=== PATIENT | male | born 1980 | race Caucasian/White ===

== ENCOUNTER → 2021-09-02 08:26 | Outpatient (CLI) | payer OTHER, BC, SELFPAY ==
--- NOTE | ~2021-09-02 | CT_ITS ---
EXAMINATION: CT sinus wo con DATE: 09/02/2021 08:41 INDICATION: Chronic sinusitis. History of rhinoplasty and sinus surgery TECHNIQUE: Computed tomography (CT) of the paranasal sinuses was performed without contrast. Iterativ e reconstruction technique was employed. Exam dose: 281.78 mGy-cm total exam DLP. COMPARISON: None FINDINGS: There is leftward bowing of the nasal septum. There is asymmetric soft tissue prominence of the right middle and inferior nasal turbinates. Status post bilateral nasal antral windows. There is resection of the uncinate processes. There is minimal right and mild left mucoperiosteal thickening of the frontal sinuses. There is promi nent patchy opacification of ethmoid air cells bilaterally. There is moderately prominent mucoperiosteal thickening of both maxillary sinuses. The sphenoid sinus es are clear. The mastoid air cells are normally developed and aerated. IMPRESSION: Status post bilateral nasal antral windows Leftward bowing of nasal septum Minimal right and mild left frontal sinus mucoperiosteal thickening and patchy opacification of ethmo id air cells bilaterally Moderate opacification of both maxillary sinuses Reviewed, dictated and finalized at [facility]. Reviewed, dictated and finalized at [facility]. IMPRESSION: Status post bilateral nasal antral windows Leftward bowing of nasal septum Minimal right and mild left frontal sinus mucoperiosteal thickening and patchy opacification of ethmoid air cells bilaterally Moderate opacification of both maxillary sinuses
== END ==
PROVIDERS: PCP Family Medicine; Visit Provider Otolaryngology
DX: J32.9 Chronic sinusitis, unspecified (principal); J34.2 Deviated nasal septum
CPT/HCPCS: 70486

== ENCOUNTER 2021-10-24 02:11 | Day surgery (SDC) | payer OTHER, BC, SELFPAY ==
[2021-10-14 10:03] VITALS: BMI 27.5
--- NOTE | 2021-10-14 10:15 | PC.NURSE ---
Report to the Outpatient Waiting Room, entrance under the green pavilion located off [facility], at time 0700 on date 10/24/21. OR Time: 0900. - You and your visitor will be asked a series of questions to screen for COVID 19 for your protection. - Only one visitor is allowed at this time. - The patient visitor is requested to leave or wait in car when not with patient. - A mask is required within the hospital. Patients may have clear liquids (water, carbonated beverages, clear teas, apple juice) until 3 hours prior to surgery with a maximum of 20 ounces. - No food from midnight until time of surgery Take the following medications with a SIP of water the morning of surgery: THYROID Medications to discontinue per physician: N/A (TAKES VITAMIN ON SUNDAY) Date to take last dose: N/A Please no make-up, nail frisian, hairspray, perfume, deodorant, or body powder the day of surgery. No jewelry (including any body piercings) or valuables the day of surgery, leave them at home. Please take a shower or bath the night before, or the morning of, surgery with an antibacterial soap. Wear comfortable, loose fitting clothing. Children are encouraged to wear pajamas. - Jewelry must be removed prior to entering the operating room. Rings and piercings that are not removed may be cut off. - The hospital will not accept responsibility for valuables. - Please leave all valuables, including medications, at home the day of surgery. If you are going home after surgery, a licensed driver guard must drive you home. - NO public transportation without another adult. - We recommend that an adult stay with you for 24 hours following discharge. - We also recommend that you do not drive, make important decision, drink alcoholic beverages, or take any drugs that were not prescribed by your health care provider for at least 24 hours after your discharge time. Follow any additional instructions given to you from your surgeon. If you or anyone in your household have experienced Covid symptoms in the past week, please notify your surgeon or the nurse liaison at the phone number below for possible testing. Telephone instructions given to PT - MEGHNA ROGERS and asked if any additional questions and then verbalized understanding. Patient advised to call surgeon office or pre surgery nurse liaison [phone] if any additional questions.
[2021-10-24] VITALS (9 sets, daily range): BP systolic 138–162; BP diastolic 84–102; PULSE 68–83; RESP 14–18; TEMP 36.4–36.9; O2SAT 96–100
--- NOTE | 2021-10-24 07:24 | PM.IMHP ---
H&P: HPI History of Present Illness Date/Time: 10/24/21 07:24 Chief Complaint: Chronic sinusitis Narrative: hx of FESS, recurrent polyposis Review of Systems Review of Systems: All systems reviewed & are unremarkable except as noted in HPI and below [facility] Social History Social History Smoking packs per day: 1 Smoking cigarettes per day: 20.0 Years smoked: 5 Smoking pack-years: 5.00 Smoking status: Former smoker Tobacco type: cigarettes Smoking end date: 05/07/02 Alcohol intake: current Drinks per week: 2 Substance use: never Substance use type: does not use Living arrangements: with family Spiritual care concerns: No Meds Home Medications and Allergies Home Medications Medication Instructions Recorded Confirmed Type clomiphene citrate 50 mg tablet 1 tablet PO DAILY 10/14/21 10/24/21 History ergocalciferol (vitamin D2) 1,250 1 cap PO WEEKLY 10/14/21 10/24/21 History mcg (50,000 unit) capsule fexofenadine 180 mg tablet 180 mg PO DAILY 10/14/21 10/24/21 History thyroid (pork) 90 mg tablet 1 tablet PO DAILY 10/14/21 10/24/21 History ([place] Thyroid) Allergies Allergy/AdvReac Type Severity Reaction Status Date / Time No Known Drug Allergies Allergy Unknown none Verified 10/24/21 07:03 Exam Narrative: Bilateral nasal polyposis and chronic sinusitis, rest of exam wnl Assessment and Plan Assessment and plan (1) Nasal polyposis: Code(s): J33.9 - Nasal polyp, unspecified Status: Acute Assessment and Plan: Chronic pansinusitis with nasal polyposis, here for revision FESS, possible septoplasty, turbinoplasty under image guidance. r/b/a reviewed, refer to outpt H&P for full details.
--- NOTE | 2021-10-24 07:26 | WPDHPUPDATE1 ---
History and Physical Update Update Date/Time: 10/24/21 07:26 History and Physical has been reviewed, including an updated exam of the patient. There are NO changes in the patient's condition. Risks, benefits, and alternatives have been discussed and questions answered. Patient agrees to proceed with procedure.
[2021-10-24] MEDS: LACTATED RINGERS 1,000 ML 30 ML IV CONT (07:44)
[2021-10-24] MEDS: ACETAMINOPHEN 500 MG TABLET 1000 MG PO (07:45)
--- NOTE | 2021-10-24 07:53 | P.PNAN_ITS ---
Anes - Initial Pre Proc Eval Procedure: Operation Date: 10/24/21 09:[address] Guided, Bilateral Frontal Sinusotomy, Bilateral Ethmoidectomy, Bilateral Sphenoidotomy, Bilateral Maxillary Antrostomy, Bilateral Turbinate Reduction, - Sahil Uribe MD s Septoplasty - Sahil Uribe MD Date/Time: 10/24/21 07:53 Surgeon: Sahil Uribe MD Pre Op Diagnosis: nasal polyps, chronic sinusitis,deviated septum, Patient Data Age: 41 Gender: M Height: 1.91 m Weight: 102 kg Last Vital Signs Temp 36.9 C 10/24/21 07:47 Pulse 81 10/24/21 07:47 Resp 16 10/24/21 07:47 BP 138/84 10/24/21 07:47 Pulse Ox 98 10/24/21 07:47 O2 Del Method Room Air 10/24/21 07:47 Allergies Allergy/AdvReac Type Severity Reaction Status Date / Time No Known Drug Allergies Allergy Unknown none Verified 10/24/21 07:03 Home Medications Medication Instructions Recorded Confirmed Type clomiphene citrate 50 mg tablet 1 tablet PO DAILY 10/14/21 10/24/21 History ergocalciferol (vitamin D2) 1,250 1 cap PO WEEKLY 10/14/21 10/24/21 History mcg (50,000 unit) capsule fexofenadine 180 mg tablet 180 mg PO DAILY 10/14/21 10/24/21 History thyroid (pork) 90 mg tablet 1 tablet PO DAILY 10/14/21 10/24/21 History ([place] Thyroid) Patient hx anesthesia problems: none Family hx anesthesia problems: none Results Review: All pre-operative results and documents have been reviewed as part of the pre- operative evaluation. [facility] Surgical History Surgical History (Updated 10/24/21 @ 07:53 by Wong Domingo MD) H/O arthroscopic knee surgery H/O sinus surgery Social History Social History Smoking packs per day: 1 Smoking cigarettes per day: 20.0 Years smoked: 5 Smoking pack-years: 5.00 Smoking status: Former smoker Tobacco type: cigarettes Smoking end date: 05/07/02 Alcohol intake: current Drinks per week: 2 Substance use: never Substance use type: does not use Living arrangements: with family Spiritual care concerns: No Anes - Eval Final PreProcedure Day of Procedure 10/24/21 07:53 Patient weight: overweight Heart: regular rate and rhythm Lungs: clear to auscultation Airway: Mallampati scale class II Neurological: alert and oriented Last oral intake: >/= 8 hours ASA classification: II Emergent: no Anesthetic plan: proceed Anesthesia type and monitoring: general ETT and standard monitoring Results Review: All pre-operative results and documents have been reviewed as part of the pre- operative evaluation. Informed Consent: The patient's anesthetic plan and its attendant risks and benefits were discussed with the patient/family/POA. Questions were solicited and answers provided to the satisfaction of the patient/family/POA.
[2021-10-24] MEDS: ceFAZolin 2 GM/D5W 50 ML 2 GM/50 ML BAG IVPB (08:23)
[2021-10-24] MEDS: OXYMETAZOLINE HCL 0.05% NAS 15 ML BTL (*BKC) 1 SPRAY NASAL (08:43)
[2021-10-24] MEDS: MUPIROCIN 2% OINT 22 GM TUBE 1 APPLIC EACH NARE (09:30)
[2021-10-24] MEDS: LIDO 1%/EPINEPHRINE/PF 1:200,000 30 ML VIAL XX (09:34)
--- NOTE | 2021-10-24 09:34 | W.PM.PROC2 ---
Procedure Note - Detailed Date of Procedure 10/24/21 Pre-op Diagnosis nasal polyps, chronic sinusitis,deviated septum, Post-op Diagnosis Same Procedure Performed Bilateral frontal sinusotomy, total ethmoidectomy, sphenoidotomy, maxillary antrostomy, turbinoplasty. Image guided surgery. Surgeon Sahil Uribe MD Anesthesia General Indications Nasal polyposis, chronic pansinusitis Findings Bilateral nasal polyposis, stenotic sphenoid and frontal sinuses. Septoplasty not required. Description of Procedure On the date of procedure the patient was met in the preoperative area and risk and benefits of the procedure reviewed with the patient as documented in the H&P and they elected to proceed with surgery. Patient was brought back to the operating room by the anesthesia team and underwent general endotracheal anesthesia. Once an adequate plane of anesthesia was obtained a timeout was performed to assure the patient identification the patient here to be performed were correct. They were.The patient was then prepped and draped in the normal fashion for endoscopic sinus surgery. The diffusion image guidance system was calibrated and used for the entire case. Afrin-soaked pledgets were placed in the nasal cavities bilaterally. The entire case was performed under endoscopic visualization. Nasal endoscopy was performed at the beginning of the case. 1% lidocaine with 1:100,000 epinephrine was then injected into the root of the middle turbinate and lateral nasal wall. Attention was first directed towards the right side. The middle turbinate was medialized and the osteomeatal complex was identified with a kaitlin probe. Using a 90 degree backbiter, the uncinate process was reflected anteriorly and removed using a combination of sharp and powered dissection. The maxillary antrostomy was then created and widened by identifying the natural ostia and opening the sinus with straight lis-cut forceps, backbiter, and microdebrider. Polyp tissue encountered was removed with microdebrider. Continuing with the microdebrider, the anterior ethmoid bulla was opened. Careful dissection was carried out posteriorly, through the basal lamella and posterior ethmoid cells until the sphenoid rostrum was identified. A Dulce suction bluntly identified the sphenoid os and the opening was widened with microdebrider and mushroom punch to 5mm. Polyp disease was removed from the sphenoid. Using an image guided curved suction as well as J-curette, the posterior most ethmoid cell was identified and the ethmoids were bluntly fractured and dissected from posterior to anterior along the base of the skull. The remaining bone fragments were removed with appropriate curved instruments and microdebrider. Next, The left maxillary antrostomy, ethmoidectomy and sphenoidotomy were carried out in identical fashion with findings of gross polyp disease throughout. No clinical evidence of CSF throughout the case. The frontal recess was identified, with gross polyp disease obstructing and removed. Image guided seeker confirmed proper identification of the frontal recess. With all sinuses opened and no remaining polyp disease appreciated, nasopore packing was placed in the ethmoid acvities bilaterally. Hemostasis was ensured. Lastly, the bilateral inferior turbiantes were reduced submucosally using 2mm microdebrider and then outfractured with a sayer elevator. This significantly opened the airway. At this point, the procedure was concluded. Care the patient was transferred back to the anesthesia team and the patient was awoke in the operating room and transferred back to the PACU in stable condition. Estimated Blood Loss 200 Drains No Packing Yes (Bilateral nasopore) Pathology Yes (sinus contents) Complications No immediate complications Condition Stable Disposition PACU
== END 2021-10-24 11:35 | disposition home or self-care (01) ==
PROVIDERS: PCP Family Medicine; Visit Provider Otolaryngology
PROC: (CPT 31253; principal; 2021-10-24 09:00)
DX: J32.4 Chronic pansinusitis (principal); J34.2 Deviated nasal septum; J33.9 Nasal polyp, unspecified; Z87.891 Personal history of nicotine dependence
CPT/HCPCS: 31253; 31287; 31256; 30140; 61782; A9270; J0330; J0690; J1100; J1170; J2250; J2405; J2704; J3010; J7040; J7120

== ENCOUNTER 2022-06-25 16:29 | Emergency (ER) | payer OTHER, BC, SELFPAY ==
[2022-06-25 16:59] VITALS: BP 154/86; PULSE 109; RESP 18; TEMP 37.6; O2SAT 99
--- NOTE | 2022-06-25 17:10 | ED.URI ---
HPI - URI/Sore Throat General Chief Complaint: Upper Respiratory Infection Stated Complaint: cold/flu symptoms,back pain Time Seen by Provider: 06/25/22 17:05 Source: patient Mode of arrival: ambulatory Limitations: no limitations History of Present Illness HPI Narrative: Lavell is a 41-year-old male patient presenting to clinic today with complaints of nonproductive cough, fever, runny nose, nasal congestion, body aches, and right-sided back pain x1 day. He reports that he was getting up off the couch yesterday and thinks he may have pinched a nerve in his back. He denies any radiation of the pain into his legs. He denies any loss of bowel or bladder. He denies any saddle anesthesia. He reports that he is taking ibuprofen and this seems to be helping the pain. He took an at-home COVID test prior to arrival and was negative. He would like to be tested for the flu. He denies a sore throat. MD elicited complaint: fever, cough, rhinorrhea, nasal congestion and other (Body aches, right-sided back pain) Related Data Home Medications Medication Instructions Recorded Confirmed ergocalciferol (vitamin D2) 1,250 1 cap PO WEEKLY 10/14/21 06/25/22 mcg (50,000 unit) capsule thyroid (pork) 90 mg tablet 1 tablet PO DAILY 10/14/21 06/25/22 ([place] Thyroid) albuterol sulfate 90 mcg/actuation 2 puff inhalation PRN PRN 06/25/22 06/25/22 aerosol inhaler Shortness Of Breath amlodipine 5 mg tablet 5 mg PO DAILY 06/25/22 06/25/22 Allergies Allergy/AdvReac Type Severity Reaction Status Date / Time No Known Drug Allergies Allergy Unknown none Verified 06/25/22 16:57 Review of Systems Review of Systems: Pertinent positives per HPI. Patient denies any rash, headache, visual changes, dizziness, shortness of breath, chest pain, palpitations, nausea, vomiting, diarrhea, constipation, abdominal pain, or any urinary issues. [facility] Surgical History Surgical History H/O arthroscopic knee surgery H/O sinus surgery Social History Social History Smoking packs per day: 1 Smoking cigarettes per day: 20.0 Years smoked: 5 Smoking pack-years: 5.00 Smoking status: Former smoker Tobacco type: cigarettes Smoking end date: 05/07/02 Alcohol intake: current Drinks per week: 2 Substance use: never Substance use type: does not use Living arrangements: with family Spiritual care concerns: No Comments At the time of my signature, I reviewed and agree with the nursing past medical, surgical, social, and family history. There is no relevant family history pertinent to the patient complaint. Exam Narrative: General: Well-developed, well nourished, in no apparent distress Head: Normocephalic, atraumatic Eyes: Pupils equally round and reactive to light bilaterally, EOM intact, sclera and conjunctive clear, no discharge, lids normal Ears: TMs intact and clear, ear canals clear, no drainage, grossly hearing normal. Nose: Nares patent, clear nasal discharge, mild inflammation, no sinus tenderness. Mouth: Oral pharynx without lesions or masses, good dentition, MMM. Postnasal drip Neck: Supple, trachea midline, no enlargement of anterior or posterior cervical nodes, no thyroid masses or goiter palpable. Cardio: Regular rate and rhythm, s1 and s2 normal, no murmur appreciated. Resp: Clear to auscultation bilaterally, no rhonchi, rales, wheezing or rubs Musculoskeletal: No deformity, mild tender to palpation over the to right lower back, grossly normal range of motion, patellar reflexes 2+, muscle strength strong and equal, peripheral pulse strong, no edema, no cyanosis, normal gait and station Course Course Emergency Course: Portions of this record may have been created with voice recognition software. Level of Care: Express Care Visit Vital Signs Vital signs: Vital Signs Temperature 37.6 C H 0
== END 2022-06-25 17:19 | disposition home or self-care (01) ==
PROVIDERS: Emergency Provider Nurse Practitioner Family; PCP Family Medicine
DX: J06.9 Acute upper respiratory infection, unspecified (principal); B34.9 Viral infection, unspecified; M54.50 Low back pain, unspecified; Z87.891 Personal history of nicotine dependence
CPT/HCPCS: 87804; 99213; G0463